=== PATIENT | female | born 1995 | race African-American/Black ===

== ENCOUNTER 2017-09-19 00:07 | Emergency (ER) | payer MEDICAID, OTHER ==
[~2017-09-19] VITALS: Ht 162.6 cm; Wt 48.0 kg
[2017-09-19 01:38] LABS: CLARITY URINE SL HAZY (CLEAR); COLOR URINE YELLOW (YELLOW)
[2017-09-19 01:39] LABS: KETONES URINE 1+ (NEGATIVE); NITRITE URINE NEGATIVE (NEGATIVE); OCCULT BLOOD URINE 1+ (NEGATIVE); PROTEIN URINE NEGATIVE (NEGATIVE); SPECIFIC GRAVITY URINE 1.012 (1.005-1.030)
[2017-09-19 01:40] LABS: LEUKOCYTE ESTERASE URINE 3+ (NEGATIVE); UROBILINOGEN URINE 0.2 E.U./dL (0.2-1.0)
[2017-09-19] MEDS ORDERED: IBUPROFEN 600MG TABLET PO STA (03:26)
[2017-09-19] MEDS ORDERED: IBUPROFEN 100MG/5ML UDC PO ONE (03:45)
[2017-09-19] MEDS ORDERED: PENICILLIN G BENZATHINE 1,200,000 UNITS/2ML SYR IM NR (04:30)
[2017-09-19 04:44] VITALS: BP 102/52
== END 2017-09-19 05:09 | disposition home or self-care (01) ==
LOC: ER 00:07
DX: J02.9 Acute pharyngitis, unspecified (principal); N39.0 Urinary tract infection, site not specified; Z98.890 Other specified postprocedural states
CPT/HCPCS: 81003; 81025; 87070; 87086; 96372; 99284; J0561